=== PATIENT | female | born 1970 | race Caucasian/White ===

== ENCOUNTER 2019-03-22 06:35 | Emergency (ER) | payer BC, OTHER ==
--- NOTE | 2019-03-22 07:14 | RAD ---
Chest AP view INDICATION: Chest pain COMPARISON: November 04, 2011 and December 13, 2011 FINDINGS: Lungs:The lungs are clear Cardiac silhouette pulmonary vasculature:The cardiomediastinal silhouette appears within normal limit s. Pleural spaces:No pleural effusion or pneumothorax is demonstrated. Upper abdomen:No abnormality seen. Osseous structures: No acute osseous abnormality. IMPRESSION: No acute cardiopulmonary abnormality.
[2019-03-22 07:17] LABS: #Basophils 0.1 thou/uL (0.0-0.2); #Eosinphils 0.2 thou/uL (0.0-0.7); #Lymphocytes 2.4 thou/uL (1.20-3.40); #Monocytes 0.6 thou/uL (0.11-0.59); %Basophils 1.1 % (0.0-1.0); %Eosinophils 2.8 % (0.0-10.0); %Lymphocytes 29.3 % (21.0-51.0); %Monocytes 6.9 % (0.0-10.0); %Neutrophils 59.9 % (42.0-75.0); Hemoglobin 14.6 g/dL (12.0-16.0); Mean Corpuscular HGB CONC 32.6 g/dL (32.0-36.0); Mean Corpuscular Hemoglobin 32.9 pg (27.0-31.0); Mean Platelet Volume 7.9 fL (7.4-10.4); Platelet Count 259 thou/uL (130-400); Red Blood Cell (RBC) Count 4.44 mill/uL (4.20-5.40); White Blood Cell (WBC) Count 8.3 thou/uL (4.8-10.8)
[2019-03-22 07:34] LABS: ALT (SGPT) 16 U/L (8-55); AST (SGOT) 14 U/L (5-34); Albumin 4.2 g/dL (3.5-5.0); Alkaline Phosphatase 76 U/L (40-150); Anion Gap 14 mmol/L (10-20); BUN (Urea Nitrogen) 8 mg/dL (7.0-18.7); Bilirubin, Total 1.4 mg/dL (0.2-1.2); CK (CPK) 55 U/L (29-168); Calc. Creatinine Clearance 0 mL/min (70-130); Calcium 9.4 mg/dL (7.8-10.44); Carbon Dioxide 27 mmol/L (22-29); Chloride 102 mmol/L (98-107); Estimated GFR-MDRD 77; Globulin 2.8 g/dL (2.4-3.5); Glucose 86 mg/dL (70-105); Lipase 27 U/L (8-78); Potassium 3.6 mmol/L (3.5-5.1); Sodium 139 mmol/L (136-145)
== END 2019-03-22 08:19 | disposition home or self-care (01) ==
LOC: ERS 06:35
DX: R07.89 Other chest pain (principal); F17.210 Nicotine dependence, cigarettes, uncomplicated
CPT/HCPCS: 36415; 71045; 80053; 82550; 83690; 84484; 85025; 93005

== ENCOUNTER → 2023-03-10 | Outpatient (CLI) | payer BC | LOC: EDSTATUS 09:57 → SCSRAD 16:20 | PROVIDERS: ATTEND Nurse Practitioner Family | DX: R59.1 Generalized enlarged lymph nodes (principal) | CPT/HCPCS: 71046 ==

== ENCOUNTER 2024-01-04 10:49 | Outpatient (CLI) | payer BC | END 2024-01-04 10:50 | disposition home or self-care (01) | LOC: RAD 10:49 | PROVIDERS: ATTEND Physician Assistant | DX: J98.11 Atelectasis (principal) | CPT/HCPCS: 71046 ==

== ENCOUNTER 2024-09-07 09:50 | Emergency (ER) | payer BC ==
[2024-09-07] MEDS ORDERED: Aspirin Chewable 81 MG TAB ONE (10:48)
[2024-09-07 10:55] LABS: #Basophils 0.04 10x3/uL (0.0-0.2); %Basophils 0.6 % (0.0-1.0); %Eosinophils 2.4 % (0.0-10.0); %Lymphocytes 28.8 % (21.0-51.0); %Monocytes 7.6 % (0.0-10.0); %Neutrophils 60.4 % (42.0-75.0); Hematocrit 44.7 % (36.0-47.0); Hemoglobin 14.4 g/dL (12.0-16.0); Mean Corpuscular HGB CONC 32.2 g/dL (32.0-36.0); Mean Corpuscular Hemoglobin 32.1 pg (27.0-31.0); Mean Corpuscular Volume 99.6 fL (78.0-98.0); Mean Platelet Volume 10.2 fL (7.4-10.4); Platelet Count 300 10x3/uL (130-400); RBC Distribution Width 13.4 % (11.5-14.5); Red Blood Cell (RBC) Count 4.49 mill/uL (4.20-5.40)
[2024-09-07 11:20] LABS: ALT (SGPT) 26 U/L (8-55); AST (SGOT) 28 U/L (5-34); Albumin 3.7 g/dL (3.5-5.0); Alkaline Phosphatase 108 U/L (40-110); Anion Gap 15 mmol/L (10-20); BUN (Urea Nitrogen) 9 mg/dL (9.8-20.1); Bilirubin, Total 0.4 mg/dL (0.2-1.2); Calc. Creatinine Clearance 0 mL/min (70-130); Calcium 9.1 mg/dL (7.8-10.44); Carbon Dioxide 24 mmol/L (22-29); Chloride 108 mmol/L (98-107); Estimated GFR 86; Globulin 3.8 g/dL (2.4-3.5); Glucose 126 mg/dL (70-105); Potassium 4.7 mmol/L (3.5-5.1); Protein, Total 7.5 g/dL (6.0-8.3); Sodium 142 mmol/L (136-145)
[2024-09-07 11:22] LABS: Troponin I Less than 0.010 ng/mL (< 0.028)
== END 2024-09-07 11:55 | disposition home or self-care (01) ==
LOC: ERS 09:50
DX: R07.89 Other chest pain (principal); F17.210 Nicotine dependence, cigarettes, uncomplicated
CPT/HCPCS: 36415; 71045; 80053; 84484; 85025; 93005